=== PATIENT | female | born 1985 | race Asian ===

== ENCOUNTER 2020-05-15 03:14 | Inpatient (IN) | payer OTHER ==
[2020-05-15] MEDS ORDERED: CARBOPROST TROMETHAMINE 250 MCG/ML 1 ML AMP IM PRN (03:36)
[2020-05-15] MEDS ORDERED: METHYLERGONOVINE 0.2 MG/ML 1 ML AMP IM PRN (03:36)
[2020-05-15] MEDS ORDERED: LIDOCAINE 0.5% (PF) 5 MG/ML (50 ML SDV) SQ PRN (03:36)
[2020-05-15] MEDS ORDERED: OXYTOCIN 10 UNIT/ML 1 ML VIAL IM PRN (03:36)
[2020-05-15] MEDS ORDERED: TERBUTALINE 1 MG/ML VIAL SQ PRN (03:36)
[2020-05-15] MEDS ORDERED: OXYTOCIN 30 UNITS/500 ML NS 30 UNIT in SALINE 1 500ML.BAG IV SCH (03:45)
[2020-05-15 04:09] LABS: Basophils % (A) 0 %; Eosinophils # (A) 0.2 k/uL (0-0.7); Eosinophils % (A) 3 %; HCT 39.5 % (34.0-46.0); HGB 13.6 gm/dL (11.4-16.0); Lymphocytes # (A) 1.2 k/uL (1.0-4.8); Lymphocytes % (A) 18 %; MCH 32.4 pg (25.0-35.0); MCHC 34.3 g/dL (31.0-37.0); MCV 94.5 fL (80.0-100.0); Mean Platelet Volume 8.8; Monocytes # (A) 0.4 k/uL (0-1.0); Monocytes % (A) 6 %; Neutrophils # (A) 4.8 k/uL (1.3-7.7); Neutrophils % (A) 72 %; Platelet Count 122 k/uL (150-450); RBC 4.19 m/uL (3.80-5.40); RDW 13.3 % (11.5-15.5); WBC 6.6 k/uL (3.8-10.6)
[2020-05-15] MEDS ORDERED: ROPIVACAINE 5MG/ML 20ML VIAL ONE (04:39)
[2020-05-15] MEDS ORDERED: fentaNYL (PF) 50 MCG/ML 5 ML AMP ONE (04:39)
[2020-05-15] MEDS ORDERED: SODIUM CHLORIDE 0.9% 100 ML BAG ONE (04:39)
[2020-05-15] MEDS: LACTATED RINGERS 1,000 ML IV SCH ×4 (04:50→23:09)
[2020-05-15] MEDS ORDERED: ROPIVACAINE 100 MG, fentaNYL (PF). 200 MCG in SODIUM CHLORIDE 0.9% 76 ML EPIDURAL ONE (06:08)
--- NOTE | 2020-05-15 07:53 | P.HPOB ---
History of Present Illness H&P Date: 05/15/20 Chief Complaint: My water broke at 2:30 this morning This is a 34-year-old female 1 para 0 EDC 05/18/2020 who presents at 39- 3/7 weeks' gestation with spontaneous amniorrhexis at home, clear fluid. Fetus is been active throughout the . She denies vaginal bleeding, and is having mild spontaneous uterine contractions upon admission. Past medical history is significant for 4 cm fibroid in the uterus. Past surgical history is negative. Current medications vitamins daily, baby aspirin daily. ALLERGIES none known. Family history is unremarkable. Social history patient is , she is employed locally, she denies tobacco or alcohol use. She speaks little Bulgarian but does well with a control system manager. Obstetric history is significant for blood type A+, rubella status immune. VDRL testing, urine culture, hepatitis B surface antigen, HIV testing, gonorrhea and chlamydia cultures, group B strep cultures all negative. One-hour Glucola w ithin normal limits. On exam patient is 4 foot 10 inches, 154 pounds, blood pressure 133/67 on admi ssion. General physical exam is within normal limits. Extremities reveal 2+ edema. Chest is clear in all jaimes. Cervix on admission was 3 cm dilated, currently 9 cm, 90%, -1 station, vertex presentation. heart rate is consistent with reactive NST. Epidural has been placed and patient is comfortable. Impression: 39-3/7 weeks intrauterine , active spontaneous labor. All signs reassuring. Plan: Continue close maternal and surveillance. Anticipate normal spontaneous vaginal delivery. Patient is doing well understanding all issues with the presence of her control system manager who is at the bedside along with her . Review of Systems Constitutional: Reports as per HPI Past Medical History Past Medical History: No Reported History History of Any Multi-Drug Resistant Organisms: None Reported Past Surgical History: No Surgical Hx Reported Past Anesthesia/Blood Transfusion Reactions: No Reported Reaction Past Psychological History: No Psychological Hx Reported Smoking Status: Never smoker Past Alcohol Use History: None Reported Past Drug Use History: None Reported - Past Family History Mother Family Medical History: No Reported History Medications and Allergies Home Medications Medication Instructions Recorded Confirmed Type Pnv No.95/Ferrous Fum/Folic AC 1 tablet PO DAILY 05/15/20 05/15/20 History [ Multivitamin Tablet] Allergies Allergy/AdvReac Type Severity Reaction Status Date / Time No Known Allergies Allergy Verified 05/15/20 03:36 Exam Vital Signs Temp Pulse Resp BP Pulse Ox 05/15/20 03:43 97.4 F L 76 16 133/67 100 Intake and Output 05/14/20 05/15/20 05/15/20 22:59 06:59 14:59 Other: # Voids 1 Weight 69.853 kg See dictation under HPI please Results Result Diagrams: 05/15/20 03:55 Abnormal Lab Results - Last 24 Hours (Table) 05/15/20 Range/Units 03:55 Plt Count 122 L (150-450) k/uL Assessment and Plan Assessment: 39-3/7 weeks intrauterine , doing well in active labor. Plan: Continue close maternal and surveillance. Anticipate normal spontaneous vaginal delivery. Time with Patient: Less than 30
[2020-05-15] MEDS ORDERED: BENZOCAINE/MENTHOL SPRAY 1 GM/SPRAY AEROSOL TOPICAL PRN (09:54)
[2020-05-15] MEDS ORDERED: ZOLPIDEM 5 MG TAB PO PRN (09:54)
[2020-05-15] MEDS ORDERED: LANOLIN CREAM 5 GM TUBE TOPICAL PRN (09:54)
[2020-05-15] MEDS ORDERED: SIMETHICONE 80 MG CHEWABLE PO PRN (09:54)
[2020-05-15] MEDS ORDERED: diphenhydrAMINE 50 MG/ML 1 ML VIAL IVP PRN ×2 (09:54)
[2020-05-15] MEDS ORDERED: diphenhydrAMINE ELIXIR 25 MG/10 ML CUP PO PRN (09:54)
[2020-05-15] MEDS ORDERED: HYDROCORTISONE 2.5% RECTAL CREAM 30 GM TUBE RECTAL PRN (09:54)
[2020-05-15] MEDS ORDERED: diphenhydrAMINE 50 MG CAP PO PRN (09:54)
[2020-05-15] MEDS ORDERED: diphenhydrAMINE 25 MG CAP PO PRN (09:54)
--- NOTE | 2020-05-15 09:54 | P.PROBDLV ---
Vaginal Delivery Note - . Vaginal Delivery Note: This is a 34-year-old female 1 para 0 EDC 05/18/2020 at 39-3/7 weeks' gestation. Patient presented in active spontaneous labor with spontaneous amniorrhexis which occurred at home at 0230 hours, clear fluid. is unremarkable, group B strep cultures negative, blood type A positive. Please see dictated history and physical for details. Epidural was placed per her request. Oxytocin augmentation was started and titrated. Patient progressed well through the first stage of labor and became completely dilated. She began the second stage of labor at that time. With coaching, her efforts became very efficient and ultimately the infant crowned. Perineal body was prepped and draped in usual sterile fashion. Infant's head delivered occiput anterior and he restituted accordingly. There was a nuchal cord times one along with a body cord 1 that was reduced. The left or anterior shoulder was gently delivered from underneath the pubic symphysis at which time the oropharynx, nasopharynx, and external nares were all bulb suctioned. Patient was officially delivered of a liveborn male at 0936 hours. Umbilical cord was doubly clamped and ligated, he was handed to waiting nurses for evaluation where scores of 8 and 9 at one and 5 minutes respectively were given. The placenta delivered spontaneously, it was inspected and noted to be intact with trivascular cord at 0938 hours. At this time the uterus is massaged. Careful inspection of the cervix, vagina, perineum, periurethral, and perirectal areas revealed a small second-degree perineal laceration. This was easily repaired in the usual fashion using 3-0 repeat suture. All sponge needle and enhancement counts are correct. Patient is requesting circumcision for her son. weighed 3395 g or 7 lbs. 8 oz. Family is allowed to begin the bonding experience in the LDR.
[2020-05-15] MEDS: IBUPROFEN 600 MG TAB PO SCH ×2 (10:31→21:13)
[2020-05-15] MEDS: ACETAMINOPHEN TAB 325 MG TAB PO PRN (13:48)
[2020-05-15] MEDS: SENNOSIDES-DOCUSATE SODIUM 1 EACH TAB PO SCH (21:14)
[2020-05-16] MEDS: ACETAMINOPHEN TAB 325 MG TAB PO PRN ×2 (00:32→23:04)
[2020-05-16] MEDS: IBUPROFEN 600 MG TAB PO SCH ×4 (00:41→16:00)
--- NOTE | 2020-05-16 11:04 | P.PNOBGVD ---
Subjective - Subjective Patient reports: Reports appetite normal, Reports voiding normally, Reports pain well controlled, Reports ambulating normally : doing well (Being closely monitored for jaundice and requires 48 hour observation.) Objective - Latest Vital Signs Latest vital signs: Vital Signs Temp Pulse Resp BP Pulse Ox 05/16/20 07:56 98.3 F 86 16 92/60 05/16/20 00:00 98.6 F 100 16 90/50 05/15/20 20:00 98.6 F 100 16 106/63 100 05/15/20 16:00 98.3 F 68 16 112/58 05/15/20 11:50 98 F 88 15 113/57 05/15/20 11:20 88 15 112/77 Intake and Output 05/15/20 05/16/20 05/16/20 22:59 06:59 14:59 Other: # Voids 1 - Exam Extremities: Present: normal Abdomen: Present: normal appearance, soft Uterus: Present: normal, firm (The uterine fundus is time and minimally tender around the umbilicus.) Assessment and Plan (1) Normal spontaneous vaginal delivery Current Visit: Yes Status: Acute Code(s): O80 - ENCOUNTER FOR FULL-TERM UNCOMPLICATED DELIVERY SNOMED Code(s): 65733771 Plan: Continue routine care. I would anticipate discharge home tomorrow pending complications.
[2020-05-16] MEDS: SENNOSIDES-DOCUSATE SODIUM 1 EACH TAB PO SCH (18:48)
[2020-05-17 00:35] VITALS: RESP 16
[2020-05-17] MEDS: IBUPROFEN 600 MG TAB PO SCH ×3 (00:35→13:05)
[2020-05-17] MEDS: SENNOSIDES-DOCUSATE SODIUM 1 EACH TAB PO SCH ×2 (00:35→09:16)
[2020-05-17 08:41] VITALS: BP 117/73; PULSE 87; TEMP 97.6
[2020-05-17] MEDS: ACETAMINOPHEN TAB 325 MG TAB PO PRN (09:16)
--- NOTE | 2020-05-17 10:25 | P.DS ---
Providers Date of admission: 05/15/20 03:36 Expected date of discharge: 05/17/20 Attending physician: Sara Pat Primary care physician: Stated None - Discharge Diagnosis(es) (1) Normal spontaneous vaginal delivery Current Visit: Yes Status: Acute Hospital Course: The patient is a 34-year-old 1 para 0 admitted at 39-3/7 weeks by good dating parameters. She's been admitted in active labor with all signs reassuring having had an uncomplicated . She reports she had spontaneous rupture of membranes at home and presented in labor subsequently. On labor and delivery, she had an epidural catheter placed for analgesia and then had Pitocin augmentation started. She ultimately progressed to complete where after she pushed to a normal spontaneous vaginal delivery of a viable 7 lbs. 8 oz. baby boy with Apgars of 8 at 1 minute and 9 at 5 minutes. Her course has been entirely uncomplicated and vital signs of been stable throughout. She is deemed stable for discharge on day #2 was discharged home to follow-up in the office in 6 weeks' time routinely. Discharge instructions included calling for any significantly increased bleeding or foul-smelling lochia, significantly increased fever or abdominal pain, perineal complaints, breast complaints, or anything else that concerned her. She was additionally instructed to have nothing in the vagina for at least 6 weeks time to include intercourse. She understood her instructions and agrees to follow up as noted above. Discharge medications included continued vitamins as she has opted to breast-feed as well as [id number] analgesic pain medications. Maternal blood type is A+ and rubella status is immune. Procedures: #1. Epidural analgesia #2. Pitocin augmentation #3. Normal spontaneous vaginal delivery #4. Repair of perineal laceration Patient Condition at Discharge: Stable Plan - Discharge Summary New Discharge Prescriptions: No Action Pnv No.95/Ferrous Fum/Folic AC [ Multivitamin Tablet] 1 tablet PO DAILY Discharge Medication List Pnv No.95/Ferrous Fum/Folic AC [ Multivitamin Tablet] 1 tablet PO DAILY 05/15/20 [History] Follow up Appointment(s)/Referral(s): Sara Pat MD [STAFF PHYSICIAN] - 6 Weeks Discharge Disposition: HOME SELF-CARE
== END 2020-05-17 13:00 | disposition home or self-care (01) | DRG 807 ==
LOC: FBPOP 03:14 → 4FBP 03:36
PROVIDERS: ADMIT Obstetrics & Gynecology; ATTEND Obstetrics & Gynecology
PROC: 00HU33Z Insertion of Infusion Device into Spinal Canal, Percutaneous Approach (ICD-10-PCS; principal; 2020-05-15)
PROC: 10E0XZZ Delivery of Products of Conception, External Approach (ICD-10-PCS; principal; 2020-05-15)
PROC: 0KQM0ZZ Repair Perineum Muscle, Open Approach (ICD-10-PCS; principal; 2020-05-15)
PROC: 3E0R3BZ Introduction of Anesthetic Agent into Spinal Canal, Percutaneous Approach (ICD-10-PCS; principal; 2020-05-15)
DX: O69.81X0 Labor and delivery complicated by cord around neck, without compression, not applicable or unspecified (principal); Z37.0 Single live birth; O34.13 Maternal care for benign tumor of corpus uteri, third trimester; Z3A.39 39 weeks gestation of pregnancy; O70.1 Second degree perineal laceration during delivery; Z79.899 Other long term (current) drug therapy
CPT/HCPCS: 59025; 85025; 86850; 86900; 86901; 99213